=== PATIENT | male | born 1980 | race Two or more races ===

== ENCOUNTER 2021-12-17 16:23 | Inpatient (IN) | payer OTHER ==
[~2021-12-17] VITALS: Ht 170.2 cm; Wt 77.0 kg
[2021-12-17 17:42] LABS: BASOPHILS % (AUTO) 0.4 % (0.0-2.0); HEMATOCRIT 48.5 % (41-53); HEMOGLOBIN 16.6 g/dL (13.5-17.5); LYMPHOCYTES # (AUTO) 2.4 K/uL (1.0-4.8); LYMPHOCYTES % (AUTO) 22.9 % (22.0-44.0); MEAN CORPUSCULAR HEMOGLOBIN 33.7 pg (26.0-34.0); MEAN CORPUSCULAR HGB CONC 34.3 G/dL (31.0-37.0); MEAN CORPUSCULAR VOLUME 98 fL (80-100); MONOCYTES # (AUTO) 0.7 K/uL (0.1-1.0); MONOCYTES % (AUTO) 6.9 % (2.0-9.0); NEUTROPHILS # (AUTO) 6.6 K/uL (1.8-7.7); NEUTROPHILS % (AUTO) 63.8 % (40.0-70.0); PLATELET COUNT (AUTO) 294 K/uL (150-450); RED BLOOD CELL COUNT(AUTO) 4.94 MIL/uL (4.50-5.90); RED CELL DISTRIBUTION WIDTH 13.1 % (11.5-14.5)
[2021-12-17 17:52] LABS: ANION GAP 6 mmol/L (8-16); CALCIUM, TOTAL 8.6 mg/dL (8.8-10.5); CARBON DIOXIDE 33 mmol/L (22-29); CHLORIDE 98 mmol/L (98-107); CREATININE 0.93 mg/dL (0.60-1.30); GLOMERULAR FILTR. RATE CALC > 60 mL/min (>60); GLUCOSE,RANDOM 99 mg/dL (70-110); SODIUM SERUM 137 mmol/L (136-145); UREA NITROGEN, BLOOD 8 mg/dL (7-18)
[2021-12-17 18:02] LABS: ALANINE AMINOTRANSFERASE 25 U/L (12-78); ALBUMIN 3.9 g/dL (3.4-5.0); ALKALINE PHOSPHATASE 103 U/L (46-116); ASPARTATE AMINOTRANSFERASE 18 U/L (15-37); BILIRUBIN,TOTAL 0.5 mg/dL (0.1-1.0); TOTAL PROTEIN, SERUM 7.6 g/dL (6.4-8.2)
[2021-12-17 18:46] LABS: COVID AG,FIA SOURCE NASOPHARYNGEAL
[2021-12-17] MEDS ORDERED: ACETAMINOPHEN 325 MG TABLET PO PRN ×2 (19:00→22:00)
[2021-12-17] MEDS ORDERED: ONDANSETRON HCL 4 MG/2 ML VIAL IVP PRN (19:00)
[2021-12-17] MEDS ORDERED: CloNIDine HCL 0.1 MG TABLET PO PRN (22:00)
[2021-12-17] MEDS ORDERED: MAGNESIUM HYDROXIDE SUSPENSION 30 ML UDCUP PO PRN (22:00)
[2021-12-17] MEDS ORDERED: PETROLATUM,WHITE 28 GM JELLY TP PRN (22:00)
[2021-12-17] MEDS ORDERED: ONDANSETRON HCL 4 MG TABLET PO PRN (22:00)
[2021-12-17] MEDS ORDERED: DOCUSATE SODIUM 100 MG CAPSULE PO PRN (22:00)
[2021-12-17] MEDS ORDERED: GuaiFENesin/D-METHORPHAN [SUGAR-FREE] 200-20MG/10 ML SYRUP UDCUP PO PRN (22:00)
[2021-12-17] MEDS ORDERED: IBUPROFEN 400 MG TABLET PO PRN (22:00)
[2021-12-17] MEDS ORDERED: NICOTINE 14 MG/24 HOUR PATCH TD PRN (22:00)
[2021-12-17] MEDS ORDERED: ALBUTEROL SULFATE HFA 90 MCG/PUFF 8 GM INHALER IH PRN (22:00)
[2021-12-17] MEDS ORDERED: MAG HYDROX/AL HYDROX/SIMETH ES 30 ML SUSPENSION UDCUP PO PRN (22:00)
[2021-12-17] MEDS ORDERED: LOPERAMIDE HCL 2 MG CAPSULE PO PRN (22:00)
[2021-12-17 22:12] VITALS: BP 132/75
[2021-12-17 22:37] LABS: AMPHET/METH SCREEN,URINE NEGATIVE (NEGATIVE); BARBITURATE SCREEN, URINE NEGATIVE (NEGATIVE); BENZODIAZEPINES SCREEN,URINE NEGATIVE (NEGATIVE); CANNABINOID SCREEN,URINE NEGATIVE (NEGATIVE); COCAINE SCREEN,URINE NEGATIVE (NEGATIVE); METHADONE SCREEN, URINE NEGATIVE (NEGATIVE); OPIATE SCREEN,URINE NEGATIVE (NEGATIVE)
[2021-12-17 22:39] LABS: PHENCYCLIDINE SCREEN,URINE NEGATIVE (NEGATIVE)
[2021-12-18 04:04] VITALS: BP 120/76
[2021-12-18 08:03] VITALS: BP 122/72
[2021-12-18 16:07] VITALS: BP 123/75
[2021-12-18] MEDS ORDERED: TraZODone HCL 50 MG TABLET PO PRN (17:00)
[2021-12-18] MEDS ORDERED: DIAZEPAM 5 MG TABLET PO PRN (17:00)
[2021-12-18] MEDS ORDERED: DIAZEPAM 10 MG TABLET PO PRN (17:08)
[2021-12-18] MEDS ORDERED: HydrOXYzine PAMOATE 25 MG CAPSULE PO PRN (17:15)
[2021-12-18 19:41] VITALS: BP 146/89
[2021-12-18] MEDS: OLANZapine 5 MG TABLET PO SCH (20:18)
[2021-12-18] MEDS ORDERED: IMIPRAMINE HCL 10 MG TAB PO SCH (21:00)
[2021-12-19 03:47] VITALS: BP 134/89
[2021-12-19] MEDS ORDERED: DIAZEPAM 10 MG TABLET PO PRN (07:00)
[2021-12-19 08:05] VITALS: BP 119/71
[2021-12-19] MEDS: DIAZEPAM 10 MG TABLET PO SCH ×4 (08:25→20:34)
[2021-12-19 15:10] VITALS: BP 116/72
[2021-12-19 20:00] VITALS: BP 121/64
[2021-12-19] MEDS: IMIPRAMINE HCL 10 MG TAB PO SCH (20:33)
[2021-12-19] MEDS: OLANZapine 5 MG TABLET PO SCH (20:34)
[2021-12-20 04:25] VITALS: BP 110/78
[2021-12-20 07:25] VITALS: BP 117/76
[2021-12-20] MEDS: DIAZEPAM 10 MG TABLET PO SCH ×4 (08:05→20:18)
[2021-12-20 15:13] VITALS: BP 115/68
[2021-12-20] MEDS: IMIPRAMINE HCL 10 MG TAB PO SCH (20:18)
[2021-12-20] MEDS: OLANZapine 5 MG TABLET PO SCH (20:18)
[2021-12-20 20:30] VITALS: BP 121/59
[2021-12-21] MEDS ORDERED: DIAZEPAM 5 MG TABLET PO PRN (07:00)
[2021-12-21 08:19] VITALS: BP 104/58
[2021-12-21] MEDS: DIAZEPAM 5 MG TABLET PO SCH ×4 (09:35→20:12)
[2021-12-21 15:13] VITALS: BP 106/68
[2021-12-21] MEDS: IMIPRAMINE HCL 10 MG TAB PO SCH (20:12)
[2021-12-21] MEDS: OLANZapine 5 MG TABLET PO SCH (20:16)
[2021-12-21 20:31] VITALS: BP 116/71
[2021-12-22 04:34] VITALS: BP 122/67
[2021-12-22] MEDS ORDERED: DIAZEPAM 5 MG TABLET PO PRN (07:00)
[2021-12-22 08:00] VITALS: BP 122/69
[2021-12-22 15:47] VITALS: BP 118/64
[2021-12-22] MEDS: IMIPRAMINE HCL 10 MG TAB PO SCH (19:55)
[2021-12-22] MEDS: OLANZapine 5 MG TABLET PO SCH (19:55)
[2021-12-22 19:58] VITALS: BP 122/56
[2021-12-23 04:45] VITALS: BP 131/76
[2021-12-23 07:54] VITALS: BP 110/73
[2021-12-23] MEDS ORDERED: IMIP10 PO (10:19)
[2021-12-23] MEDS ORDERED: OLAN5TAB52 PO (10:20)
== END 2021-12-23 11:45 | DRG 885 ==
LOC: EMS 16:23 → 6S 20:57
PROVIDERS: ADMIT Internal Medicine; ATTEND Internal Medicine
DX: F20.9 Schizophrenia, unspecified (principal); F13.20 Sedative, hypnotic or anxiolytic dependence, uncomplicated; Z20.822 Contact with and (suspected) exposure to COVID-19; Z79.899 Other long term (current) drug therapy
CPT/HCPCS: 80053; 85025; 99285; G0480